=== PATIENT | female | born 1975 | race African-American/Black ===

== ENCOUNTER 2020-01-13 12:06 | Emergency (ER) | payer OTHER ==
[~2020-01-13] VITALS: Ht 180.3 cm; Wt 89.4 kg
[2020-01-13 14:19] VITALS: BP 123/85
== END 2020-01-13 14:19 | disposition home or self-care (01) ==
LOC: ER 12:06
DX: J06.9 Acute upper respiratory infection, unspecified (principal); J45.909 Unspecified asthma, uncomplicated

== ENCOUNTER 2020-01-19 13:53 | Emergency (ER) | payer OTHER ==
[~2020-01-19] VITALS: Ht 180.3 cm; Wt 89.4 kg
[2020-01-19] MEDS ORDERED: PROMETH-CODEIN 65 ML PO (15:04)
[2020-01-19] MEDS ORDERED: VENTOLIN HFA 1818 GM INH (15:04)
[2020-01-19 15:33] VITALS: BP 134/79
== END 2020-01-19 15:30 | disposition home or self-care (01) ==
LOC: ER 13:53
DX: J06.9 Acute upper respiratory infection, unspecified (principal); F17.210 Nicotine dependence, cigarettes, uncomplicated; J45.909 Unspecified asthma, uncomplicated; R19.7 Diarrhea, unspecified; Z71.6 Tobacco abuse counseling